=== PATIENT | male | born 1970 | race Caucasian/White ===

== ENCOUNTER 2022-05-01 08:22 | Day surgery (SDC) | payer BC ==
[2022-04-26 16:22] VITALS: BMI 33.2
[~2022-05-01 08:22] MED LIST: LACTATED RINGERS 1,000 ML IV SCH; LIDOCAINE 1% (10MG/ML) FOR IV START INTRADERMA PRN; ONDANSETRON 4 MG/2 ML VIAL IVP PRN
[2022-05-01 09:22] VITALS: TEMP 97.5
[2022-05-01] MEDS ORDERED: LIDOCAINE 2% INJ 20 MG/ML (2 ML VIAL) ONE (10:00)
[2022-05-01] MEDS ORDERED: PROPOFOL 10 MG/ML 20 ML VIAL IV ONE (10:00)
--- NOTE | 2022-05-01 10:16 | P.PCN ---
Date of Procedure: 05/01/22 Procedure(s) Performed: BRIEF HISTORY: Patient is a 51-year-old pleasant white male scheduled for an elective colonoscopy as a part of screening for colon cancer. PROCEDURE PERFORMED: Colonoscopy with snare polypectomy. PREOPERATIVE DIAGNOSIS: Screening for colon cancer. IV sedation per Anesthesia. PROCEDURE: After informed consent was obtained, the patient, was brought into the endoscopy unit. IV sedation was administered by Anesthesia under continuous monitoring. Digital rectal examination was normal. Initially the Olympus CF-160 flexible video colonoscope was then inserted in the rectum, gradually advanced into the cecum without any difficulty. Careful examination was performed as the scope was gradually being withdrawn. Ileocecal valve and the appendiceal orifice were visualized and appeared normal. Prep was excellent. Mucosa of the cecum, a 5 mm and 1 cm broad-based polyps removed by snare polypectomy. Rest of the ascending colon, transverse colon, descending colon, sigmoid colon, and rectum appeared normal. Retroflexion was performed in the rectum and no lesions were seen. The patient tolerated the procedure well. IMPRESSION: 5 mm and 1 cm cecal polyp status post polypectomy Rest of the colon appeared normal RECOMMENDATIONS: Findings of this examination were discussed with the patient as well as his family. He was advised to follow with the biopsy results. If the biopsy result adenoma he can have a repeat colonoscopy in 3 years
[2022-05-01 10:35] VITALS: BP 133/77; PULSE 64; RESP 14
== END 2022-05-01 10:53 | disposition home or self-care (01) ==
LOC: ORWHC2ENDO 08:22
PROVIDERS: ATTEND Internal Medicine Gastroenterology
DX: Z12.11 Encounter for screening for malignant neoplasm of colon (principal); D12.0 Benign neoplasm of cecum; I10 Essential (primary) hypertension; G47.33 Obstructive sleep apnea (adult) (pediatric); M19.90 Unspecified osteoarthritis, unspecified site; F41.9 Anxiety disorder, unspecified; Z99.89 Dependence on other enabling machines and devices; Z79.82 Long term (current) use of aspirin; Z79.899 Other long term (current) drug therapy; Z98.890 Other specified postprocedural states
CPT/HCPCS: 88305; 45385; J2704; J2001

== ENCOUNTER → 2023-01-04 | Outpatient (CLI) | payer BC ==
--- NOTE | 2023-01-04 15:39 | CT ---
EXAMINATION TYPE: CT cervical spine wo con DATE OF EXAM: 01/04/2023 COMPARISON: MRI 11/12/2022 HISTORY: 52-year-old male M5 4.2, cervical disc displacement TECHNIQUE: Contiguous axial scanning of the cervical spine without IV contrast. Coronal and sagittal reconstructions performed. CT DLP: 637 mGycm Automated exposure control for dose reduction was used. FINDINGS: No craniocervical junction abnormality, predental space widening, or prevertebral soft tissue swellin g. There is moderate disc/endplate degenerative change C5-C7 levels with disc space narrowing, endplate irregularity, and disc osteophyte complex formation. There appears to be an underlying mild congenital spinal canal stenosis with AP canal dimension of 1 cm. Posterior disc bulges contributing to more moderate spinal canal stenosis at both C5-C6 and C6-C7. At C5-C6, there is moderate right and [id number] left neuroforaminal stenosis. At C6/C7, there is mild left neuroforaminal stenosis. At C7-T1, there is [id number] left neuroforaminal stenosis. IMPRESSION: 1. MODERATE DISC/ENDPLATE DEGENERATIVE CHANGE FROM C5 THROUGH C7 LEVELS SUPERIMPOSED ON A MILD CONGEN ITAL SPINAL CANAL STENOSIS. 2. CHANGES RESULT IN OVERALL MODERATE FOCAL SPINAL CANAL STENOSES AT BOTH C5-C6 AND C6-C7. 3. Moderate right greater than left neuroforaminal stenoses at C5-C6 and additional variable mild to moderate neural foraminal narrowing in the remainder of the lower cervical spine.
== END | disposition home or self-care (01) ==
LOC: RADCTMAIN 09:52
PROVIDERS: ATTEND Orthopaedic Surgery
DX: M47.812 Spondylosis without myelopathy or radiculopathy, cervical region (principal); M50.322 Other cervical disc degeneration at C5-C6 level; M50.222 Other cervical disc displacement at C5-C6 level; M48.02 Spinal stenosis, cervical region; M99.71 Connective tissue and disc stenosis of intervertebral foramina of cervical region
CPT/HCPCS: 72125

== ENCOUNTER → 2023-04-09 | Outpatient (CLI) | payer BC | END | disposition home or self-care (01) | LOC: LABPAT 08:18 | PROVIDERS: ATTEND Orthopaedic Surgery | DX: Z01.812 Encounter for preprocedural laboratory examination (principal); M48.02 Spinal stenosis, cervical region; M47.812 Spondylosis without myelopathy or radiculopathy, cervical region; M50.20 Other cervical disc displacement, unspecified cervical region; Z22.322 Carrier or suspected carrier of Methicillin resistant Staphylococcus aureus | CPT/HCPCS: 87070 ==

== ENCOUNTER → 2023-04-13 | Outpatient (CLI) | payer BC ==
[2023-04-13 22:58] LABS: HCT 44.1 % (39.6-50.0); HGB 15.2 g/dL (13.0-17.0); MCH 30.7 pg (27.0-32.0); MCHC 34.5 g/dL (32.0-37.0); MCV 89.1 FL (80.0-97.0); Mean Platelet Volume 10.1 FL (9.5-12.2); NRBC Per 100 WBC 0 X 10*3/uL (0.00-0.01); Platelet Count 194 X 10*3/uL (140-440); RBC 4.95 X 10*6/uL (4.40-5.60); RDW 11.9 % (11.5-14.5)
[2023-04-13 23:22] LABS: ALT 32 U/L (10-49); AST 21 U/L (14-35); Albumin 4.8 g/dL (3.8-4.9); Albumin/Globulin Ratio 1.66 Ratio (1.60-3.17); Alkaline Phosphatase 65 U/L (41-126); Blood Urea Nitrogen 15.8 mg/dL (9.0-27.0); Calcium 10.1 mg/dL (8.7-10.3); Carbon Dioxide 26.6 mmol/L (21.6-31.8); Chloride 100 mmol/L (96-109); Globulin 2.9 g/dL (1.6-3.3); Glucose 97 mg/dL (70-110); Potassium 4.2 mmol/L (3.5-5.5); Sodium 140 mmol/L (135-145); Total Bilirubin 0.4 mg/dL (0.3-1.2); Total Protein 7.7 g/dL (6.2-8.2)
[2023-04-14 09:53] LABS: Prothrombin Time 10.8 sec (9.9-11.9)
== END | disposition home or self-care (01) ==
LOC: LABWHC1 09:13
PROVIDERS: ATTEND Orthopaedic Surgery
DX: Z01.812 Encounter for preprocedural laboratory examination (principal); M47.22 Other spondylosis with radiculopathy, cervical region; M50.20 Other cervical disc displacement, unspecified cervical region; M48.02 Spinal stenosis, cervical region
CPT/HCPCS: 36415; 80053; 82306; 85027; 85610

== ENCOUNTER 2023-04-16 05:42 | Day surgery (SDC) | payer BC ==
[2023-04-11 15:21] VITALS: BMI 33.2
--- NOTE | 2023-04-15 06:38 | P.HPOR ---
History of Present Illness H&P Date: 04/03/23 .D:Date: 04/03/23 : 09:08am .T:Title: [facility] History and Physical Date of :70 [id number]: NKDA Age: 52 year Height: 6' Weight: 240 lbs BMI: 32.55 kg/m2 Occupation: Sales VAS: 4 Hand:Right Spine Surgery Risk Review Mr. Jalloh is presenting for evaluation of neck and right upper extremity pain, right upper extremity radiculopathy, decreased right hand dexterity. It was my pleasure to have seen and examined Mr. Jalloh. In our visit today we have had a chance to go over subjective complaints, physical examination findings and treatments including the natural course history without intervention and various interventional options. The patients imaging demonstrates: XRay Cervical multiview (Lateral, Flexion, Extension, AP, Oblique) 6 views taken at [facility] on 11/06/22: - Re-reviewed with the patient in office today. Moderate multilevel spondylitic and degener with preserved alignment. Multilev el diminished disc height, more pronounced C5-C6, C6-C7 with bilateral foraminal stenosis. Vertebral body heights are preserved. No acute osseous abnormalities. MRI scancompleted at Outside facility from11/12/22 [facility]: - Re-reviewed with the patient in office today. Nonspecific straightening of the normal cervical lordosis is seen. Spondylosis and disc dissection is seen throughout the cervical spine. Disc space narrowing is seen at C5-C7. There is no evidence of signal abnormality within the central cord. multilevel broad based disc herniation effaces the ventral surface of the thecal sac resulting in severe bilateral neural foraminal encroachment and bilateral exiting nerve root impingement in conjunction with marginal osteophyte formation. On physical exam, Mr. Jalloh demonstrates: A continued burning, sharp pain throughout the neck that radiates down into right upper extremity. He notes his right arm pain is associated with numbness and tingling. The patient notes severe pain, numbness, and tingling throughout the first, fourth, and fifth digits of the right hand. The patient notes decreased right hand dexterity. The patient states that his symptoms are exacerbated by any movement of the neck or when bending, lifting, or twisting. The patient notes that his current symptoms make it very difficult for him to complete any of his activities of daily living. The patient reports experiencing severe sleep disturbances related to his ongoing pain and associated symptoms. I have explained to the patient that as their condition progresses it will cause further neurological deficits and eventual paralysis. Based on the patients imaging, physical exam, and the rapid progression and disabling nature of their symptoms, at this time I recommend surgery in the form of a: C5-T1 ACDF. I discussed the risk and benefits of this procedure at length with Mr. Jalloh. The patient agreed to considered pursuing the procedure abovementioned. Prior to surgery, she should follow up with her PCP (Cardio, ID, IM etc) for clearance. Questions were invited and answered, and the patient wishes to proceed as outlined below. Currently, I am recommendin.C5-T1 ACDF 2.Follow up with PCP for surgical clearance 3.Review of surgical risks and benefits as well as an educational packet on the proposed surgical procedure. Risks: All surgical procedures come with inherent risks, including those related to positioning, anesthesia, intraoperative findings, and postoperative complications. It is important to understand that surgery does not come with any guarantee of a successful outcome as complications and adverse events are always possible. The patient was given a handout in office today discussing the surgical procedure and risks associated with the intervention, both of which were discussed with the patient. These risks include but are not limited to the following: * Experiencing same, different or even worse symptoms in back, neck, arms, or legs compared to before surgery. Requiring further surgery or other forms of treatment presently or at some time in the future at same or other levels of the intended spine surgery. On an extreme but fortunately relatively rare basis severe complication such as blindness, stroke, heart attack, temporary and/or permanent nerve injury, paralysis, coma, or may occur, sometimes without known explanation. Surgical complications may include but are not limited to risk of infection, fluid accumulation in the surgical dissection site, including a seroma or hematoma, that requires additional surgery, wound drainage, bleeding, new numbness or weakness, vision changes/loss, spinal fluid leakage, non-healing and/or infected incision, headaches, difficulty or inability to swallow, hoarseness, hemopneumothorax, pneumothorax, impotence, retrograde ejaculation, vaginal dryness; injury to nerves, spinal cord, blood vessels, lymphatics or other vital organs (i.e., bowel injury, injury to the great vessels); heterotopic bone formation; complications related to the hardware such as screws, rods, cages including misplaced hardware, device failure, instrumentation at the wrong spine level, hardware fracture/breakage, or hardware loosening; vertebral failure of the spinal column above or below the newly placed hardware; retained surgical instrumentations or devices and the need for further surgery. * Medical risks of the planned spine surgery include but are not limited to generalized Infections to the whole body or local areas outside of the surgical site (sepsis), heart attack, bleeding, anaphylaxis, meningitis, seizure, epilepsy, hearing loss, burn goff, laceration of the head or other areas of the body, bruising, hypersensitivity of the skin, bladder over distension; allergic reaction; shoulder injury related to positioning; fat, blood and air clots to other areas of the body like heart, lungs, brain; f ailure of internal organs such as lungs, kidneys, liver and excessive bleeding. If blood transfusions are necessary, note that transfusions may cause intolerance reactions such as anaphylaxis or other complex reactions. Despite best efforts, the results of spine surgery might not heal in terms of bone, soft tissues such as skin, fascia, ligaments, and joints. Additionally, in order to achieve best possible results, spine surgery may be carried out beyond the initially planned levels and involve decompression, fusion including insertion of hardware at levels other than the original intended area of surgical interest change some portions of the procedure in order to ensure the best possible outcomes. With spine surgery and spinal fusion, there are different off label uses of instrumentation (devices, implants and hardware) as well as biological substances (bone morphogenic proteins, demineralized bone matrix) as well as using extra bone from allograft sources (i.e. cadaver bone) or autograft (iliac crest bone, ribs, or the spine itself). The patient has been given information about these practices and their inherent risks and benefits. [facility] is an educational center that serves as a training facility for neurosurgical and orthopedic [employer]PER[employer] and Nursing students. Physician assistants are medically trained surgical providers who function in the outpatient, inpatient, and operating room setting under the direct supervision of the attending surgeon. [facility] has multiple operating rooms with single and overlapping rooms running daily. They currently function under the required guidelines as produced by the [facility] Finance Committee with regards to the overlapping rooms and will continue to comply with changes to this policy as they occur. The req uirements include and are complied with as follows: (1) the critical portions of the overlapping rooms will not occur at the same time, (2) the attending physician will be physically present during the critical portions of the procedure and immediately available during the entire case, and (3) a back-up attending is designated should the primary attending not be immediately available. The patient has had a chance to review all the listed information, has been given print outs detailing this information, and has had all his/her questions answered to their satisfaction. It was my pleasure to have seen and examined Mr. Jalloh. In our visit today we have had a chance to go over my understanding of our patient's current condition, the natural course history without intervention and various interventional options. Questions were invited and answered, and the patient wishes to proceed as outlined above. I have seen and examined the patient for 25 minutes and we have spent more than 50% of the time in repeat and detailed counseling about the patient's condition, its natural course history with out and as much as can be predicted with surgery and re-review of various surgical treatment options. In conclusion, Mr. Jalloh requested we proceed with the above suggested surgery and are willing to accept risks and limitations of the suggested surgery as nature of the disease process and our best attempts at treatment for the condition. Thank you again for allowing us to be part of your patient's care. Please don't hesitate to contact me if you have any further questions. Follow- up: Post procedure Patient Education: (Informational booklet, instructions, etc) given at today's appointment: Yes .ED:Patient Education: Y Medications Reviewed: YES In our visit today Mr. Jalloh and I have had a chance to go over my understanding of the patient's current condition, the natural course history without intervention and various interventional options. Questions were invited and answered, and the patient wishes to proceed as outlined above. I will be sure to keep you updated afterMr. Jalloh returns here for further follow-up. Thank you again for your referral. Please do not hesitate to contact me if you have any further questions. Signed and authenticated by: [facility] [address], [address] [place] [address] This message is confidential, intended only for the named recipient(s) and may contain information that is privileged or exempt from disclosure under applicable law. If you are not the intended recipient(s), you are notified that the dissemination, distribution or copying of this information is strictly prohibited. If you received this message in error, please notify the sender then delete this message. Patient verbalizes understanding of the information discussed. The above note was initiated by Sylwia De León, physician recording plastic surgery assistant for Dr. Alcides Wall. This note has been reviewed by Dr. Wall, who has made his personal changes and impressions for this document. CC: Nahomi Milan M.D. 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 HX right elbow bone spur. HX right spider bite to finger-NO CURRENT ISSUES History of Any Multi-Drug Resistant Organisms: None Reported Past Surgical History: Orthopedic Surgery Additional Past Surgical History / Comment(s): rt elbow BONE SPUR REMOVED. TUBE IN LEFT EAR Past Anesthesia/Blood Transfusion Reactions: No Reported Reaction Smoking Status: Never smoker - Past Family History Sister(s) Family Medical History: Cancer Additional Family Medical History / Comment(s): breast cancer Mother Family Medical History: Cancer Additional Family Medical History / Comment(s): thyroid Medications and Allergies Home Medications Medication Instructions Recorded Confirmed Type Atenolol/Chlorthalidone 1 each PO DAILY 04/11/23 04/11/23 History [Atenolol-Chlorthalidone 100-25] Allergies Allergy/AdvReac Type Severity Reaction Status Date / Time No Known Allergies Allergy Verified 04/11/23 14:45 Physical Examination Osteopathic Statement: *. No significant issues noted on an osteopathic structural exam other than those noted in the History and Physical/Consult.
[~2023-04-16 05:42] MED LIST changes: +ACETAMINOPHEN TAB 500 MG TAB PO PRN; +GABAPENTIN 300 MG CAP PO PRN; -LACTATED RINGERS 1,000 ML IV SCH; -LIDOCAINE 1% (10MG/ML) FOR IV START INTRADERMA PRN; +TRANEXAMIC 1,000 MG/100ML-NACL 1,000 MG in SALINE 1 100ML.BAG IVPB PRN
[2023-04-16] MEDS ORDERED: ONDANSETRON 4 MG/2 ML VIAL IVP ONE (06:05)
[2023-04-16] MEDS: LACTATED RINGERS 1,000 ML IV SCH (06:46)
[2023-04-16] MEDS: LACTATED RINGERS 1,000 ML IV ONE ×2 (06:46→09:43)
[2023-04-16] MEDS: DEXAMETHASONE SOD PHOSPHATE 4 MG/ML 1 ML VIAL IV ONE ×2 (06:57→12:09)
[2023-04-16] MEDS ORDERED: SUCCINYLCHOLINE CHLORIDE 200 MG/10 ML VIAL IV ONE (07:27)
[2023-04-16] MEDS ORDERED: NEOSTIGMINE 1 MG/ML 10 ML VIAL ONE (07:27)
[2023-04-16] MEDS ORDERED: LIDOCAINE 1% INJ 10MG/ML (20 ML MDV) ONE (07:27)
[2023-04-16] MEDS ORDERED: GLYCOPYRROLATE 0.2 MG/ML 2 ML VIAL ONE (07:27)
[2023-04-16] MEDS ORDERED: TRANEXAMIC 1,000 MG/100ML-NACL PREMIX BAG ONE (07:27)
[2023-04-16] MEDS ORDERED: ePHEDrine 50 MG/ML 1 ML VIAL ONE (07:27)
[2023-04-16] MEDS ORDERED: ROCURONIUM 10 MG/ML (5 ML VIAL) IV ONE (07:27)
[2023-04-16] MEDS ORDERED: HYDROmorphone (PF) 1 MG/ML ONE (07:27)
[2023-04-16] MEDS ORDERED: fentaNYL (PF) 50 MCG/ML 2 ML AMP ONE (07:27)
[2023-04-16] MEDS ORDERED: MIDAZOLAM 2 MG/2 ML VIAL ONE (07:27)
[2023-04-16] MEDS ORDERED: PROPOFOL 10 MG/ML 20 ML VIAL IV ONE (07:27)
[2023-04-16] MEDS ORDERED: LACTATED RINGERS 1,000 ML IV ONE (07:28)
[2023-04-16] MEDS ORDERED: GELATIN SPONGE,ABSORB (LARGE) 1 EACH SPONGE TOPICAL ONE (08:05)
[2023-04-16] MEDS ORDERED: THROMBIN (BOVINE) 5,000 UNIT VIAL TOPICAL ONE (08:05)
--- NOTE | 2023-04-16 09:53 | XR ---
EXAMINATION TYPE: XR cervical spine limited DATE OF EXAM: 04/16/2023 COMPARISON: NONE HISTORY: Intraoperative cervical fusion TECHNIQUE: 4 views submitted FINDINGS: There is a metallic instrument overlying the mid cervical spine with subsequent postsurgica l changes. ET tube noted. IMPRESSION: Postop
[2023-04-16] MEDS ORDERED: HYDROmorphone 0.5 MG/0.5 ML SYRINGE IVP PRN (10:03)
[2023-04-16] MEDS ORDERED: ONDANSETRON 4 MG/2 ML VIAL IVP PRN (10:03)
[2023-04-16] MEDS ORDERED: HYDROcodone/APAP 5-325MG 1 EACH TAB PO PRN (10:03)
[2023-04-16] MEDS ORDERED: CYCLOBENZAPRINE 5 MG TAB PO PRN (10:03)
[2023-04-16] MEDS ORDERED: NA PHOS,M-B/NA PHOS,DI-BA 133 ML ENEMA RECTAL PRN (10:03)
[2023-04-16] MEDS ORDERED: MAGNESIUM HYDROXIDE 2,400 MG/30 ML CUP PO PRN (10:03)
[2023-04-16] MEDS: HYDROmorphone 0.5 MG/0.5 ML SYRINGE IVP PRN ×4 (10:23→11:06)
--- NOTE | 2023-04-16 10:25 | P.OP ---
Date of Procedure: 04/16/23 Preoperative Diagnosis: 1. C5-T1 SPONDYLOSIS, SEVERE WITH SEVERE STENOSIS 2. UE RADICULOPATHY WITH PARESTHESIAS 3. NECK PAIN 4. UE WEAKNESS Postoperative Diagnosis: 1. C5-T1 SPONDYLOSIS, SEVERE WITH SEVERE STENOSIS 2. UE RADICULOPATHY WITH PARESTHESIAS 3. NECK PAIN 4. UE WEAKNESS Procedure(s) Performed: 1. C5-6, C6-7 ANTERIOR CERVICAL DISCECTOMY WITH ARTHRODESIS (33093, 66378) 2 .APPLICATION OF NON INTEGRATED ANTERIOR PLATE (91626) 3. INSERTION OF BIOMECHANICAL DEVICES C5-6, C6-7 ([id number]) USE OF IONM USE OF IO MICROSCOPE Implants: -PANDA CASCADIA CAGES X2 -PANDA OZARK PLATE X1 -MAGNATOS Anesthesia: JULIOA Surgeon: Alcides Wall Photography Spotter #1: Maribel Thompson (WAS PRESENT AND ASSISTED WITH ALL ASPECTS OF THE CASE FROM POSITION TO CLOSURE) Estimated Blood Loss (ml): 50 IV fluids (ml): 1,200 Urine output (ml): 0 Pathology: none sent Condition: stable Disposition: PACU Indications for Procedure: Mr. Jalloh is presenting for evaluation of neck and right upper extremity pain, right upper extremity radiculopathy, decreased right hand dexterity. It was my pleasure to have seen and examined Mr. Jalloh. In our visit today we have had a chance to go over subjective complaints, physical examination findings and treatments including the natural course history without intervention and various interventional options. The patients imaging demonstrates: XRay Cervical multiview (Lateral, Flexion, Extension, AP, Oblique) 6 views taken at [facility] on 11/06/22: - Re-reviewed with the patient in office today. Moderate multilevel spondylitic and degener with preserved alignment. Multilevel diminished disc height, more pronounced C5-C6, C6-C7 with bilateral foraminal stenosis. Vertebral body heights are preserved. No acute osseous abnormalities. MRI scancompleted at Outside facility from[facility]12[facility]: - Re-reviewed with the patient in office today. Nonspecific straightening of the normal cervical lordosis is seen. Spondylosis and disc dissection is seen throughout the cervical spine. Disc space narrowing is seen at C5-C7. There is no evidence of signal abnormality within the central cord. multilevel broad based disc herniation effaces the ventral surface of the thecal sac resulting in severe bilateral neural foraminal encroachment and bilateral exiting nerve root impingement in conjunction with marginal osteophyte formation. On physical exam, Mr. Jalloh demonstrates: A continued burning, sharp pain throughout the neck that radiates down into right upper extremity. He notes his right arm pain is associated with numbness and tingling. The patient notes severe pain, numbness, and tingling throughout the first, fourth, and fifth digits of the right hand. The patient notes decreased right hand dexterity. The patient states that his symptoms are exacerbated by any movement of the neck or when bending, lifting, or twisting. The patient notes that his current symptoms make it very difficult for him to complete any of his activities of daily living. The patient reports experiencing severe sleep disturbances related to his ongoing pain and associated symptoms. I have explained to the patient that as their condition progresses it will cause further neurological deficits and eventual paralysis. Based on the patients imaging, physical exam, and the rapid progression and disabling nature of their symptoms, at this time I recommend surgery in the form of a: C5-T1 ACDF. I discussed the risk and benefits of this procedure at length with Mr. Jalloh. The patient agreed to considered pursuing the procedure abovementioned. Prior to surgery, she should follow up with her PCP (Cardio, ID, IM etc) for clearance. Questions were invited and answered, and the patient wishes to proceed as outlined below. Currently, I am recommendin.C5-T1 Anterior cervical discectomy and fusion Description of Procedure: C5-7 ACDF The patient was seen and examined in the preoperative area. All preoperative protocols were followed. Informed consent was obtained, risks and benefits of the procedure were discussed at length. Risks including bleeding infection damage to the surrounding tissue and risk of reoperation were discussed with the patient. Risk of anesthesia up to and including was discussed with the patient. These are outlined in the risk review. They were willing to accept these risks and all the risks of surgery. The patient was given a weight-based dose of antibiotics in the form of 2 g Ancef. The patient was seen and evaluated by the anesthesia team who deemed them fit for surgery. The site was marked, the patient was willing to proceed with the procedure. The patient was transferred to the operative suite by the Department of anesthesia. They were then drifted off to sleep by the department anesthesia and GETA was performed. The patient tolerated this well. Ugarte catheter was placed by nursing staff, a-traumatically. Once confirmation of lines and ventilation the patient was transferred to a Supine Krishna table very carefully. All bony prominences including wrists, elbows, axilla, chest, hips, and thighs, and feet were padded very well. Special attention was paid to the genitalia, and these were padded accordingly. SCDs were placed on bilateral lower extremities and were connected. Arms were well padded and placed at their side thumbs up. Once in position, again we confirmed good ventilation capabilities and that lines were running appropriately. The patients Cervical spine was then exposed. 1010s were placed outlining the incision site. Standard alcohol was used to clean the incision site and allowed to dry. C-arm was used to bio-amina the patient and confirm level for incision which was marked with a skin marker. Operative briefing was performed with all teams and everyone in agreement to proceed. The patient was then prepped and draped in a normal sterile fashion. Timeout was then performed, and all parties agreed with the procedure to be performed. Transverse skin incision was then made on the right side of the patient's neck 3 cm and dissection taken down to the platysma which was split transversely. Sub platysma flap was made, and interval identified between SCM and medial structures. Omohyoid was visualized and protected. Blunt dissection taken down to the anterior cervical fascia which was identified. Blunt probe was then placed and lateral image taken which confirmed levels for operation. These levels were then marked with a bovi. Subperiosteal dissection of the longissimus muscles were then done over these levels identifying uncovertebral joints bilaterally. Retractor was then placed deep to these muscles and held in place with a bed arm. Starting at C6-7, [place] pins were placed into C6 and C7 and gentle distraction taken out over the levels. Maria G rongeur used to remove disc material. Operating microscope brought in for visualization. Complete discectomy performed at this level with curette, rongure and pituitary. High speed cisco used to remove osteophytes anteriorly and posteriorly until PLL was identified. 6-0 up curette then used to identify the canal and resect the PLL. 2-0 and 3-0 Kerrison used then to remove PLL and disc herniation and performed b/l foraminotomies. Once good decompression was accomplished, meticulous hemostasis was performed. Sizers were then placed under lateral fluoroscopy until the desired height and lordosis. Cage was then selected, packed with autograft and allograft and placed under lateral imaging. Once in good position it was tested and stable. Motors run before and after cage placement were stable. The wound was irrigated, and autograft placed lateral to the cage anteriorly for fusion. [place] pin was then removed from C7 and placed into C5. Gentle distraction taken out over C5-6 now. Complete discectomy done at C5-6 as described including decompression, b/l foraminotomies and PLL resection. Burring of endplates was minimal, osteophytes removed as described. Spacers were then sized and placed under lateral imaging. Cage selected, packed with graft and placed under lateral images. Once in position, meticulous hemostasis performed, and motors remained stable before and after cage placement. AP image confirmed good placement of cages. Wound was irrigated. A separate, non-integrated plate was then selected and sized under lateral imag e. The plate was then placed with screws. Fixed screws drilled into C7 b/l and screws placed. Then into C6 and finally C5 with variable screws. All locking mechanisms were set, and all screws had good purchase. Final AP and lateral images taken confirmed good placement of hardware and good reduction and catholic of height. The wound was then irrigated copiously with NSS. Surgicel placed deep in the wound. A deep drain placed out a separate incision and sewed into place. Layered closure then performed with 3-0 Vicryl in the platysma and subQ tissue. 4-0 Strata fix in the subcuticular tissue. The wound was then cleaned, and dried and skin glue placed. Once glue dried on Opifoam was placed. The patient was then transferred back to their hospital bed a-traumatically. The drain continued to hold suction. They were placed in a soft collar. They were then awakened by the department of anesthesia having tolerated the procedure well without complications.
[2023-04-16] MEDS ORDERED: droPERidol 5 MG/2 ML VIAL IVP ONE (10:39)
[2023-04-16] MEDS: HYDROcodone/APAP 10-325MG 1 EACH TAB PO PRN ×2 (12:28→21:20)
[2023-04-16] MEDS: HYDROmorphone 1 MG/ML 1 ML SYRINGE IVP PRN ×3 (14:37→23:54)
--- NOTE | 2023-04-16 16:16 | CT ---
EXAMINATION TYPE: CT cervical spine wo con DATE OF EXAM: 04/16/2023 COMPARISON: HISTORY: S/P C5-C7 ACDF. CT DLP: [address] of the cervical spine was performed with bone and soft tissue window settings submitted . Coronal and sagittal reconstruction is obtained. C2-3, C3-4 and C4-5: Within normal limits C5-6 and C6-7: Postsurgical changes of anterior cervical discectomy and fusion. Anterior postsurgical soft tissue changes seen. Surgical drain is noted to be in place. Intervertebral body spacers at C5- 6 and C6-7. Anterior fixation plates and screws. Postoperative alignment is within normal limits. No evidence of epidural collection. C7-T1: Within normal limits There is normal alignment and prevertebral soft tissues. I do not see evidence for fracture or sublu xation. No significant degenerative changes are present. The lung apices are clear IMPRESSION: Appropriate postoperative change as noted.
[2023-04-17] MEDS: HYDROmorphone 1 MG/ML 1 ML SYRINGE IVP PRN (04:14)
[2023-04-17 06:42] LABS: Basophils % (A) 0 %; Eosinophils % (A) 0 %; HCT 41.5 % (39.0-53.0); HGB 14.2 gm/dL (13.0-17.5); Lymphocytes % (A) 23 %; MCH 31.6 pg (25.0-35.0); MCHC 34.1 g/dL (31.0-37.0); MCV 92.4 fL (80.0-100.0); Mean Platelet Volume 7.8; Monocytes # (A) 0.5 k/uL (0-1.0); Monocytes % (A) 6 %; Neutrophils # (A) 5.9 k/uL (1.3-7.7); Neutrophils % (A) 69 %; Platelet Count 172 k/uL (150-450); RBC 4.49 m/uL (4.30-5.90); RDW 12.2 % (11.5-15.5); WBC 8.5 k/uL (3.8-10.6)
[2023-04-17 06:59] LABS: African American GFR (CKD) >90 (>60 ml/min/1.73 sqM); Anion Gap 12 mmol/L; Blood Urea Nitrogen 19 mg/dL (9-20); Calcium 9.5 mg/dL (8.4-10.2); Carbon Dioxide 31 mmol/L (22-30); Chloride 94 mmol/L (98-107); Glucose 105 mg/dL (74-99); Non-African American GFR(CKD) 78 (>60 ml/min/1.73 sqM); Potassium 4.8 mmol/L (3.5-5.1); Sodium 137 mmol/L (137-145)
[2023-04-17 08:20] VITALS: TEMP 97.7
[2023-04-17] MEDS: LACTATED RINGERS 1,000 ML IV SCH (08:48)
[2023-04-17] MEDS: oxyCODONE-APAP 5-325MG 1 EACH TAB PO PRN ×2 (08:50→12:42)
[2023-04-17] MEDS ORDERED: atenoloL 50 MG TAB PO SCH (09:00)
[2023-04-17] MEDS ORDERED: CHLORTHALIDONE 25 MG TAB PO SCH (09:00)
[2023-04-17] MEDS ORDERED: SENNOSIDES-DOCUSATE SODIUM 1 EACH TAB PO SCH (09:00)
[2023-04-17] MEDS ORDERED: GABAPENTIN 300 MG CAP PO SCH (09:00)
--- NOTE | 2023-04-17 09:08 | P.PN ---
Subjective Progress Note Date: 04/17/23 Principal diagnosis: 1. C5-T1 severe spondylosis with severe stenosis 2. Bilateral upper extremity radiculopathy paresthesias 3. Neck pain Patient seen and examined this morning. Patient is resting comfortably in bed. Spouse is at bedside. Patient has complained of neck pain with movement, he reports that Barney does not provide relief of his symptoms. Medications have been adjusted. Right anterior cervical incision, FAUSTINO drain has been removed. Surgical incision as well as pathway with glue intact. New dressing applied. Soft cervical collar present. Informed patient that he is to work with physical therapy today and pending pain management we will possibly discharge later today. No acute concerns at this time. Objective - Vital Signs Vital signs: Vital Signs Temp 98.4 F 04/17/23 00:56 Pulse 66 04/17/23 00:56 Resp 18 04/17/23 00:56 BP 135/74 04/17/23 00:56 Pulse Ox 95 04/17/23 00:56 FiO2 Intake & Output 04/16/23 04/17/23 04/17/23 18:59 06:59 18:59 Intake Total 2050 Output Total 50 Balance 1999 Weight 117.1 kg Intake: IV 1750 Oral 300 Output: Estimated Blood Loss 50 Other: # Voids 2 1 - Exam Physical Examination General: The patient is awake and alert, in no acute distress Skin: Skin is warm and dry with no obvious rashes or lesions. Right anterior cervical incision is well approximated with good intact, FAUSTINO drain has been removed and new dressing has been applied. Eye: Pupils are equal, round and reactive to light, extra-ocular movements are intact; there is normal conjunctiva bilaterally. Neck: The neck is supple, there is mild tenderness and limited range of motion due to pain and surgical procedure. Soft cervical collar is intact. Cardiovascular: There is a regular rate and rhythm. No murmur, rub or gallop is appreciated. Respiratory: Lungs are clear to auscultation, respirations are non-labored, breath sounds are equal. Gastrointestinal: Soft, non-distended, non-tender abdomen. Back: There is no tenderness to palpation in the midline, paralumbar, parathoracic or buttocks region. There is no obvious deformity . Musculoskeletal: ROM limited secondary to pain and stiffness from surgical procedure. Muscle strength in all major muscle groups of bilateral upper extremities 4/5, bilateral lower extremities 5/5. Neurological: CN 2-12 intact. There are no obvious motor or sensory deficits. Movement and coordination equal and intact. Sensory exam to light touch intact C5-T1 and intact from L2-S1. Reflexes 2/4 in bilateral upper and lower extremities. Negative Hoffmans, babinski, and clonus signs. Psychiatric: Cooperative, appropriate mood & affect, normal judgment. - Labs CBC & Chem 7: 04/17/23 05:45 04/17/23 05:45 Labs: Abnormal Lab Results - Last 24 Hours (Table) 04/17/23 Range/Units 05:45 Chloride 94 L (98-107) mmol/L Carbon Dioxide 31 H (22-30) mmol/L Glucose 105 H (74-99) mg/dL Assessment and Plan Assessment: Postop day 1: C5-C7 ACDF 1. C5-T1 severe spondylosis with severe stenosis 2. Bilateral upper extremity radiculopathy paresthesias 3. Neck pain Plan: -Appreciate cosmetic sales consultant and team management. -Activity: Ambulate QID, OOB all meals, up and about, limit lifting bending twisting to less than 5 lbs. Use walker or cane if needed for stability. -Daily PT/OT, increase ambulation strength and balance. -Soft cervical collar when up and about, not needed in chair -Pain control: Adequate at this time -Meds: reviewed -GI ppx: senna, Miralax -DVT PPX: Heparin -Hygiene: Shower today. Maintain dressing clean and dry. -Encourage IS 10x/hr -Dispo: Anticipate discharge home later today with homecare *I reviewed and discussed this case with my attending Dr. Wall, whom has reviewed this chart and films and is in agreement with assessment and plan of care as outlined above. I have personally seen and examined the patient, performed the documentation and the assessment and plan as written. Number of minutes spent on the visit: 20m.
--- NOTE | 2023-04-17 10:50 | P.CONS ---
History of Present Illness - Reason for Consult Consult date: 04/16/23 - History of Present Illness Chriss Jalloh, is a 52-year-old male patient of Dr. Milan who presented for an elective C5 to C7 ACDF. Patient has a past medical history of C5 to T1 severe spondylosis with severe stenosis with bilateral upper extremity radiculopathy parestheisias. Patient is currently postop day 1. Additional medical history includes hypertension, osteoarthritis and anxiety. Patient denies any history of blood clots denies any cardiac conditions. Patient denies Nicotine dependence. Patient is currently resting comfortably in chair. Patient having some mild discomfort. Patient denies chest pain or shortness of breath. Patient denies nausea vomiting or diarrhea. Current vital signs temp 97.9, heart rate 70, blood pressure 127/75, pulse ox 96% 2 L. 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 HX right elbow bone spur. HX right spider bite to finger-NO CURRENT ISSUES History of Any Multi-Drug Resistant Organisms: None Reported Past Surgical History: Orthopedic Surgery Additional Past Surgical History / Comment(s): rt elbow BONE SPUR REMOVED. TUBE IN LEFT EAR Past Anesthesia/Blood Transfusion Reactions: No Reported Reaction Smoking Status: Never smoker - Past Family History Sister(s) Family Medical History: Cancer Additional Family Medical History / Comment(s): breast cancer Mother Family Medical History: Cancer Additional Family Medical History / Comment(s): thyroid Medications and Allergies Home Medications Medication Instructions Recorded Confirmed Type Atenolol/Chlorthalidone 1 each PO DAILY 04/11/23 04/16/23 History [Atenolol-Chlorthalidone 100-25] Allergies Allergy/AdvReac Type Severity Reaction Status Date / Time No Known Allergies Allergy Verified 04/16/23 06:51 Physical Exam Vitals: Vital Signs Temp Pulse Pulse Resp BP BP Pulse Ox 04/16/23 12:00 57 L 16 130/58 94 L 04/16/23 11:30 58 L 16 136/70 94 L 04/16/23 11:15 57 L 16 126/65 94 L 04/16/23 11:00 60 16 128/71 97 04/16/23 10:45 70 16 127/62 99 04/16/23 10:31 59 L 16 126/57 98 04/16/23 10:16 60 16 132/63 97 04/16/23 10:01 96.9 F L 65 16 139/72 98 04/16/23 06:24 97.4 F L 61 18 147/83 98 Intake and Output 04/15/23 04/16/23 04/16/23 22:59 06:59 14:59 Intake Total 500 1750 Output Total 50 Balance 500 1700 Intake: IV 500 1750 Output: Estimated Blood Loss 50 Other: Weight 117.1 kg Head normocephalic Neck supple Lungs clear to auscultation bilaterally no wheezing or crackles Heart regular rate and rhythm S1-S2, no rub or gallop Abdomen is soft nontender nondistended positive bowel sounds no hepatosplenomegaly Extremities no edema Neuro alert and orientated to 3 Results CBC & Chem 7: 04/17/23 05:45 04/17/23 05:45 Assessment and Plan Assessment: Status post C5 to T1 ACDF history of C5 to T1 severe spondylosis with severe stenosis with bilateral upper extremity radiculopathy parestheisias status post History of essential hypertension History of osteoarthritis History of anxiety DVT prophylaxis per orthopedic surgery SCDs at this time Thank you for this consultation we will continue to follow patient closely throughout stay Time with Patient: Greater than 30 (Greater than 60% of the total time spent in counseling and coordination of care)
--- NOTE | 2023-04-17 10:51 | P.PN ---
Subjective Progress Note Date: 04/17/23 Chriss Jalloh, is a 52-year-old male patient of Dr. Milan who presented for an elective C5 to C7 ACDF. Patient has a past medical history of C5 to T1 severe spondylosis with severe stenosis with bilateral upper extremity radiculopathy parestheisias. Patient is currently postop day 1. Additional medical history includes hypertension, osteoarthritis and anxiety. Patient denies any history of blood clots denies any cardiac conditions. Patient denies Nicotine dependence. Patient is currently resting comfortably in chair. Patient having some mild discomfort. Patient denies chest pain or shortness of breath. Patient denies nausea vomiting or diarrhea. Current vital signs temp 97.9, heart rate 70, blood pressure 127/75, pulse ox 96% 2 L. On 04/17/2023 patient is alert and oriented 3 currently sitting up in chair soft cervical neck collar in place. at bedside. Patient reports improvement with pain with adjustment of pain medications per orthopedic services. Patient denies chest pain or shortness of breath. Patient denies nausea vomiting or diarrhea. Patient denies any urinary burning or frequency. Anticipate possible discharge home today per orthopedic services Objective - Vital Signs Vital signs: Vital Signs Temp 97.7 F 04/17/23 07:19 Pulse 65 04/17/23 07:19 Resp 17 04/17/23 07:19 BP 162/73 04/17/23 07:19 Pulse Ox 93 L 04/17/23 07:19 FiO2 Intake & Output 04/16/23 04/17/23 04/17/23 18:59 06:59 18:59 Intake Total 0 Output Total 50 Balance 1999 Weight 117.1 kg Intake: IV 1750 Oral 300 Output: Estimated Blood Loss 50 Other: # Voids 2 1 - Exam Head normocephalic Neck supple Lungs clear to auscultation bilaterally no wheezing or crackles Heart regular rate and rhythm S1-S2, no rub or gallop Abdomen is soft nontender nondistended positive bowel sounds no hepat osplenomegaly Extremities no edema Neuro alert and orientated to 3 - Labs CBC & Chem 7: 04/17/23 05:45 04/17/23 05:45 Labs: Abnormal Lab Results - Last 24 Hours (Table) 04/17/23 Range/Units 05:45 Chloride 94 L (98-107) mmol/L Carbon Dioxide 31 H (22-30) mmol/L Glucose 105 H (74-99) mg/dL Assessment and Plan Assessment: Status post C5 to T1 ACDF history of C5 to T1 severe spondylosis with severe stenosis with bilateral upper extremity radiculopathy parestheisias status post History of essential hypertension History of osteoarthritis History of anxiety DVT prophylaxis per orthopedic surgery SCDs at this time Thank you for this consultation we will continue to follow patient closely throughout stay
[2023-04-17 15:06] VITALS: BP 124/69; PULSE 95; RESP 16
== END 2023-04-17 15:05 | disposition home or self-care (01) ==
LOC: OR 05:42 → 4SSUR 09:47 → OR 04-17 15:05
PROVIDERS: ATTEND Orthopaedic Surgery
DX: M47.812 Spondylosis without myelopathy or radiculopathy, cervical region (principal); M48.02 Spinal stenosis, cervical region; I10 Essential (primary) hypertension; Z86.718 Personal history of other venous thrombosis and embolism
CPT/HCPCS: 97161; 86900; 86901; 80048; 85025; 86850; 72040; 72125; 20930; 20936; 22551; 22552; 22853; 22845; L0120; C1713; J1100; J0690; J2405; J1170 ×3; J1790